=== PATIENT | female | born 1940 | race Caucasian/White ===

== ENCOUNTER 2017-01-14 09:08 | Day surgery (SDC) | payer MEDICARE, BC ==
[~2017-01-14] VITALS: Ht 167.6 cm; Wt 89.5 kg
[~2017-01-14 09:08] MED LIST: CARAFATE1 G PO; COLESTID1 GM PO; CYMBALTA60 MG PO; HCTZ25 MG PO; LOPRESSOR25 MG PO; LOPRESSOR50 MG PO; MACROBID100 MG PO; METOPROLOL TART50 MG PO; NEURONTIN 300300 MG PO; NORCO 10/325 TA1 TA1 PO; PRILOSEC20 MG PO; PRINIVIL20 MG PO; TYLENOL 8 HOUR650 MG PO
[2017-01-14] MEDS ORDERED: VITAMIN B-12500 MC1 PO (10:33)
[2017-01-14 10:38] VITALS: BP 95/64; Ht 167.6 cm; Wt 89.5 kg
[2017-01-14 11:13] LABS: HEMATOCRIT 42.1 % (36.0-48.0); HEMOGLOBIN 13.5 g/dL (12-16); MCH 31.8 pg (26.0-34.0); MCHC 32.1 g/dL (31.0-37.0); MCV 99.3 fL (80.0-100.0); MEAN PLATELET VOLUME 11.2 fL (7.4-10.4); RBC 4.24 10x6/uL (4.00-5.40); RDW 12.7 % (11.5-14.5); WBC 6.9 10x3/uL (4.8-10.8)
[2017-01-14 11:32] LABS: CALCIUM 9.2 mg/dL (8.5-10.1); CARBON DIOXIDE 33.1 mmol/L (21.0-32.0); CREATININE - SERUM 0.8 mg/dL (0.6-1.3)
[2017-01-14 11:33] LABS: ANION GAP 10.9 mmol/L (8-16)
--- NOTE | 2017-01-14 14:55 | NUR ---
PATIENT AMBULATING AROUND ROOM SLOWLY WITHOUT UNSTEADINESS OR DIZZINESS, PIV DC'D WITH TIP INTACT. DISCHARGE INSTRUCTIONS REVIEWED WITH PATIENT. PATIENT DISCHARGED HOME VIA WHEELCHAIR TO PRIVATE VEHICLE WITH SON
--- NOTE | 2017-02-05 12:04 | OP ---
PATIENT NAME: TERRY BOO MEDICAL RECORD: [id number] :40 LOCATION:DBOOM ADMISSION DATE: SURGEON: UDAY JEFFERSON DO DATE OF OPERATION: 01/14/2017 PROCEDURE: Colonoscopy. INDICATIONS: 1. Personal history of polyps. 2. Family history of colon cancer in father and brother. CONSENT: After discussion of the risks and benefits, the patient consented to the procedure. MEDICATIONS: See anesthesia report. DESCRIPTION OF PROCEDURE: After the patient was adequately sedated with propofol, the colonoscope was inserted through the anus and advanced to the terminal ileum. In the cecum, there were 5 sessile polyps ranging in size from 4 mm to 12 mm. All polyps were injected at the base with normal saline to provide a cushion for polypectomy. Four of the 5 polyps were removed with hot snare polypectomy. The largest polyp which involved the ileocecal valve/surgical anastomosis required piecemeal resection. All polyps were retrieved. Upon withdrawal of the endoscope, 2 polyps were seen in the ascending colon. One was approximately 4 mm and the other was approximately 18 mm. Both polyps were injected with saline at the base for safe removal. Endoscopic mucosal resection was performed on both of these polyps. The larger of the 2 polyps did require piecemeal resection as well. The defect appeared to be clean without bleeding, vessels, or too large of size so no endoclips were placed. This polyp required removal with a net. Upon withdrawal of the endoscope further polyps were seen, which appeared sessile and raised. One polyp was located in the descending colon and the other was near the sigmoid/and or distal descending colon. There was also a sessile serrated appearing polyp located in the cecum, which was not removed due to its size of approximately 3 cm and extended time of procedure. At this point, the patient will be asked to return for completion and polypectomies. Withdrawal time was greater than 10 minutes. COMPLICATIONS: None. ESTIMATED BLOOD LOSS: Less than 5 cc. FINDINGS: 1. Five cecal polyps snared and removed after injection (endoscopic mucosal resection). 2. Ascending colon polyps also removed with saline injection and endoscopic mucosal resection. 3. Unremoved polyps including a serrated adenomatous polyp in the cecum, as well as 2 sessile adenomatous polyps in the descending colon. PLAN AND RECOMMENDATIONS: We will ask the patient to return for a repeat colonoscopy in approximately 1 month after review of polyp pathology for further removal of polyps. TRANSINT:[id number] Voice Confirmation ID: [id number] DOCUMENT ID: [id number] OPERATIVE REPORT [id number] TERRY BOO NATHAN A DO at 1204 CC: [id number] DICTATION DATE: 01/14/17 1301 ASSISTANT PRODUCE MANAGER: 01/14/17 1921 [facility] 01/14/17 [id number] [place] [address]
== END 2017-01-14 14:55 | disposition home or self-care (01) ==
LOC: D.OPS 09:08
PROVIDERS: Internal Medicine Gastroenterology
DX: D12.0 Benign neoplasm of cecum (principal); D12.2 Benign neoplasm of ascending colon; Z80.0 Family history of malignant neoplasm of digestive organs

== ENCOUNTER 2017-02-25 09:54 | Day surgery (SDC) | payer MEDICARE, BC ==
[~2017-02-25] VITALS: Ht 167.6 cm; Wt 88.5 kg
[~2017-02-25 09:54] MED LIST changes: +VITAMIN B-12500 MC1 PO
[2017-02-25 11:47] LABS: BASOPHILS 0.2 % (0.0-2.0); EOSINOPHILS 1.6 % (0-7); HEMATOCRIT 41.4 % (36.0-48.0); HEMOGLOBIN 13.4 g/dL (12-16); IMMATURE GRANULOCYTES 0.2 % (0-5); LYMPHOCYTES 17.9 % (15-50); MCH 32.4 pg (26.0-34.0); MCHC 32.4 g/dL (31.0-37.0); MEAN PLATELET VOLUME 10.6 fL (7.4-10.4); MONOCYTES 7.3 % (2-11); NEUTROPHILS 72.8 % (40-80); PLATELET COUNT 243 10x3/uL (130-400); RBC 4.14 10x6/uL (4.00-5.40); RDW 12.6 % (11.5-14.5); WBC 8.5 10x3/uL (4.8-10.8)
[2017-02-25 11:55] LABS: ANION GAP 8.4 mmol/L (8-16); CALCIUM 8.9 mg/dL (8.5-10.1); CARBON DIOXIDE 34.3 mmol/L (21.0-32.0); CREATININE - SERUM 0.9 mg/dL (0.6-1.3); POTASSIUM - SERUM 3.7 mmol/L (3.5-5.1)
[2017-02-25 12:01] VITALS: BP 137/76; Ht 167.6 cm; Wt 88.5 kg
--- NOTE | 2017-02-25 13:31 | NUR ---
1330-TATOO COLON WITH 2 CC JR INK.
--- NOTE | 2017-02-25 16:40 | NUR ---
PATIENT AWAKE, ALERT, DRINKING CLEAR LIQUIDS, FULL LIQUIDS SERVED. PATIENT STATES "I BARELY REMEMBER HAVING A STOMACH ACHE EARLIER, BUT I FEEL FINE NOW. I WANT TO GO HOME." ABDOMEN IS SOFT, PATIENT IS PASSING GAS. AMBULATES TO BATHROOM AND VOIDS LARGE AMOUNT IN TOILET. RIGHT FOREARM PIV DC'D WITH TIP INTACT
--- NOTE | 2017-02-25 17:10 | NUR ---
DISCHARGE INSTRUCTIONS REVIEWED WITH PATIENT AND SON. DISCHARGED HOME VIA WHEELCHAIR TO PRIVATE VEHICLE WITH SON
--- NOTE | 2017-02-26 10:50 | OP ---
PATIENT NAME: TERRY BOO MEDICAL RECORD: [id number] :40 LOCATION:D.OPS ADMISSION DATE: SURGEON: UDAY JEFFERSON DO DATE OF OPERATION: 02/25/2017 PROCEDURE: Colonoscopy with snare polypectomy, biopsy, and some mucosal injection. SCOPE: NotesFirst video pediatric colonoscope. MEDICATIONS: Propofol 680 mg per night IV per anesthesia. INDICATIONS: Colon polyps. FINDINGS: Informed consent was given. The patient was made comfortable with the above medications. Once an adequate level of sedation was reached by slow IV push, the patient was placed on her left side. A digital rectal examination was performed and was normal. The endoscope was then advanced under direct visualization through the rectum to the cecum, evidenced by the appendiceal orifice, ileocecal valve, and cecal folds. The scope did enter the terminal ileum shortly and saw no abnormalities. The scope was then withdrawn slowly while the mucosa was carefully examined. In the ascending colon at approximately 80 cm from the anal verge, there was a large, flat, serrated adenomatous polyp visualized. This polyp was lifted with saline and an attempt at a snare polypectomy was made, but the snare would not capture the tissue and it slid over the tissue due to the flat nature of the polyp. The polyp measured approximately 1.4 cm in total diameter. Biopsies were taken and tattoo was placed just distal and just proximal to the polyp. The scope was withdrawn further and in the descending colon, a semi-pedunculated polyp measuring approximately 8 mm in diameter was removed with snare cautery successfully. The polyp was completely removed and retrieved in 1 piece. There were diverticula of severe in nature noted in the descending and sigmoid colon. On retroflexion of the rectum, there was some evidence of internal hemorrhoids/prolapsed tissue, which was not bleeding, but was erythematous. The scope was then withdrawn from the patient. The patient tolerated the procedure well and there were no complications. Withdrawal time was 34 minutes and this procedure was somewhat difficult due to redundancy of the colon as well as tortuosity. IMPRESSION: 1. Large, 1.4, sessile serrated adenomatous polyp which was flat and found in the ascending colon. Polypectomy was attempted, but could not be completed. Tattoo was placed proximally and distally. 2. Descending semi-pedunculated polyp removed with snare cautery. 3. Severe diverticulosis of the left side of the colon. 4. Prolapse tissue/internal hemorrhoids upon retroflexion. RECOMMENDATIONS: 1. Discharge home when recovery parameters are met. 2. Refer to Dr. Rowland for consideration of APC of the serrated adenomatous polyp in the ascending colon. 3. Continue the high fiber diet. 4. Continue current medications. 5. Recall colonoscopies will be at Dr. Rowland's preference based on his findings after his procedure. OPERATIVE REPORT [id number] TERRY BOO TRANSINT:[id number] Voice Confirmation ID: [id number] DOCUMENT ID: [id number] UDAY JEFFERSON DO at 1050 CC: [id number] DICTATION DATE: 02/25/17 1353 MICA PASTER: 02/25/17 2338 [facility] 02/25/17 [facility] [address] [place] [address]
== END 2017-02-25 17:10 | disposition home or self-care (01) ==
LOC: D.OPS 09:54
PROVIDERS: Anesthesiology
DX: D12.4 Benign neoplasm of descending colon (principal); I10 Essential (primary) hypertension; K21.9 Gastro-esophageal reflux disease without esophagitis; K44.9 Diaphragmatic hernia without obstruction or gangrene; G47.30 Sleep apnea, unspecified

== ENCOUNTER 2017-11-01 13:30 | Emergency (ER) | payer MEDICARE, BC ==
[2017-02-25 12:01] VITALS: BMI 31.5
== END 2017-11-01 15:53 | disposition home or self-care (01) ==
LOC: D.ER 13:30
DX: S06.0X0A Concussion without loss of consciousness, initial encounter (principal); W19.XXXA Unspecified fall, initial encounter; Y93.89 Activity, other specified; Y92.531 Health care provider office as the place of occurrence of the external cause; K21.9 Gastro-esophageal reflux disease without esophagitis; I10 Essential (primary) hypertension; Z86.73 Personal history of transient ischemic attack (TIA), and cerebral infarction without residual deficits

== ENCOUNTER 2017-12-25 08:28 | Day surgery (SDC) | payer MEDICARE, BC ==
[2017-02-25 12:01] VITALS: BMI 31.5
[2017-12-25 09:28] LABS: HEMATOCRIT 39.6 % (36.0-48.0); HEMOGLOBIN 12.7 g/dL (12-16); MCH 32.1 pg (26.0-34.0); MCHC 32.1 g/dL (31.0-37.0); MEAN PLATELET VOLUME 10.4 fL (7.4-10.4); RBC 3.96 10x6/uL (4.00-5.40); RDW 12.2 % (11.5-14.5); WBC 10.3 10x3/uL (4.8-10.8)
[2017-12-25] MEDS ORDERED: METOPROLOL TAR100 M1 PO (10:08)
[2017-12-25] MEDS ORDERED: FLINTSTONE1 TAB.CHEW PO (10:09)
== END 2017-12-25 09:45 | disposition home or self-care (01) ==
LOC: D.OPS 08:28 → D.PAN 10:50 → D.OPS 10:50 → D.PAN 11:00 → D.OPS 13:30
PROVIDERS: Anesthesiology
DX: Z53.9 Procedure and treatment not carried out, unspecified reason (principal); Z01.812 Encounter for preprocedural laboratory examination

== ENCOUNTER 2017-12-26 10:35 | Day surgery (SDC) | payer MEDICARE, BC ==
[~2017-12-26] VITALS: Ht 167.6 cm; Wt 86.2 kg
--- NOTE | ~2017-12-26 | OP ---
PATIENT NAME: TERRY BOO MEDICAL RECORD: [id number] :40 LOCATION:D.OPS ADMISSION DATE: SURGEON: NAVEED HENRY MD DATE OF OPERATION: 12/26/2017 PREOPERATIVE DIAGNOSIS: Serrated adenoma of the ascending colon, tattooed. POSTOPERATIVE DIAGNOSES: Serrated adenoma of the ascending colon, tattooed with a secondary 9 mm sessile polyp of the ascending colon as well. PROCEDURES: 1. Total colonoscopy to cecum. 2. Hot biopsy forceps polypectomy times 1. 3. Ascending colon polypectomy of the 2.5 cm serrated adenomatous polyp, which was tattooed. After biopsies, a polypectomy was performed utilizing the argon plasma risk control officer to ablate the polypoid base. SURGEON: Naveed Henry MD TECH ED/WOODSHOP TEACHER: None. BLOOD LOSS: Minimal. ANESTHESIA: General. COMPLICATIONS: None. The risks, possible complications and alternatives to the procedure were explained to the patient. She elects to proceed. OPERATIVE COURSE: The patient was conveyed to the operating room electively on 12/26/2017. General anesthesia was induced by the anesthesia staff. The patient was placed in the Mcleod position. A digital rectal examination was performed. A colonoscope was inserted through the anus. It was easily advanced to the cecum. The prep was adequate. The tattooed polyp was noted. Cold endoscopic biopsies were performed. I then ablated the polypoid base utilizing the argon plasma risk control officer with the right colon setting in the forced mode. I then continued to withdraw the endoscope. I noted another sessile polyp. This was removed utilizing a hot biopsy forceps polypectomy technique. I continued to withdraw the endoscope. I irrigated and aspirated extensively. A combination of direct imaging as well as narrow band imaging was utilized. Incidentally the serrated adenoma was best viewed with narrow band imaging. The pullback was greater than a 15-minute pullback. A retroflexed view was obtained in the rectum. I then unretroflexed the scope and removed it under direct vision. I will see the patient in my office in 2 to 3 weeks. I will plan for a repeat colonoscopy with the argon plasma risk control officer in 1 year. TRANSINT:[id number] Voice Confirmation ID: [id number] DOCUMENT ID: [id number] OPERATIVE REPORT [id number] TERRY BOO NAVEED HENRY MD CC: DELANO CARRANZA MD, RAMIRO BYRNE and UDAY JEFFERSON DO [id number] DICTATION DATE: 12/27/17 0908 CROP CONSULTANT: 12/27/17 1008 [facility] 12/26/17 [address] [place] [address]
[~2017-12-26 10:35] MED LIST changes: +FLINTSTONE1 TAB.CHEW PO; +METOPROLOL TAR100 M1 PO
[2017-12-26 11:51] VITALS: BP 116/68; Ht 167.6 cm; Wt 86.2 kg
[2017-12-26 12:30] LABS: HEMATOCRIT 38.1 % (36.0-48.0); HEMOGLOBIN 12.2 g/dL (12-16); MCH 31.6 pg (26.0-34.0); MCV 98.7 fL (80.0-100.0); MEAN PLATELET VOLUME 10.4 fL (7.4-10.4); RBC 3.86 10x6/uL (4.00-5.40); RDW 12.4 % (11.5-14.5)
[2017-12-26 12:33] LABS: WBC 7.7 10x3/uL (4.8-10.8)
[2017-12-26 12:40] LABS: ANION GAP 8.9 mmol/L (8-16); CARBON DIOXIDE 34.8 mmol/L (21.0-32.0); CREATININE - SERUM 1.2 mg/dL (0.6-1.3); POTASSIUM - SERUM 3.7 mmol/L (3.5-5.1)
== END 2017-12-26 17:40 | disposition home or self-care (01) ==
LOC: D.OPS 10:35
PROVIDERS: Anesthesiology
DX: D12.2 Benign neoplasm of ascending colon (principal); I10 Essential (primary) hypertension; K21.9 Gastro-esophageal reflux disease without esophagitis; Z01.812 Encounter for preprocedural laboratory examination

== ENCOUNTER 2018-01-25 18:55 | Emergency (ER) | payer MEDICARE, BC ==
[2017-12-26 11:51] VITALS: BMI 31.0
== END 2018-01-25 22:30 | disposition home or self-care (01) ==
LOC: D.ER 18:55
DX: S20.219A Contusion of unspecified front wall of thorax, initial encounter (principal); W01.0XXA Fall on same level from slipping, tripping and stumbling without subsequent striking against object, initial encounter; Y93.89 Activity, other specified; Y92.019 Unspecified place in single-family (private) house as the place of occurrence of the external cause; S43.402A Unspecified sprain of left shoulder joint, initial encounter; K21.9 Gastro-esophageal reflux disease without esophagitis; I10 Essential (primary) hypertension